=== PATIENT | male | born 1970 | race African-American/Black ===

== ENCOUNTER 2020-12-06 02:07 | Emergency (ER) | payer SELFPAY ==
--- NOTE | 2020-12-06 07:44 | EDM.PDOCBH ---
ED HPI GENERAL MEDICAL PROBLEM - General Chief Complaint: Drug or Alcohol Abuse Stated Complaint: Medical Clearance Time Seen by Provider: 12/06/20 02:10 Source of Information: Reports: Patient, Police History Limitations: Reports: No Limitations, Intoxication - History of Present Illness INITIAL COMMENTS - FREE TEXT/NARRATIVE: Patient comes emergency department today with a local Police Department for medical clearance for halfway. This patient was drinking alcohol tonight he was pulled over by the police and he is being arrested under the suspicion of driving under the influence of alcohol. Patient was brought to the emergency department for medical clearance by the police request as he has been drinking and he is going to halfway. There is no physical altercation or difficulty with the arrest. The patient did not request to come to the emergency department. The police brought him here because he is intoxicated and the halfway requires a medical clearance for any intoxicated patients. Upon arrival the patient is alert and oriented and ambulatory. He has no medical complaints. He denies any headache nausea vomiting dizziness. No chest pain no shortness of breath or difficulty breathing. No fever no chills. No abdominal pain nausea or vomiting. No hematuria dysuria or urinary frequency. No black or tarry stools he is completely asymptomatic. Denies Covid exposure denies Covid symptoms. Does admit to drinking alcohol heavily today and denies any recreational drug use. - Related Data Allergies Allergy/AdvReac Type Severity Reaction Status Date / Time No Known Allergies Allergy Verified 12/06/20 02:26 Home Meds: Home Meds . [No Known Home Meds] 12/06/20 [History] ED ROS GENERAL - Review of Systems Review Of Systems: Comprehensive ROS is negative, except as noted in HPI. ED EXAM, BEHAVIORAL HEALTH - Physical Exam Exam: See Below Text/Narrative:: He is alert appropriate no confusion. He knows where he is. He follows commands. He is ambulatory on his own very steadily. He is very cooperative and interactive. Exam Limited By: No Limitations General Appearance: Alert, WD/WN, No Apparent Distress Eye Exam: Bilateral Eye: EOMI Ears: Normal External Exam Nose: Normal Inspection Throat/Mouth: Normal Inspection, Perioral Cyanosis Head: Atraumatic Neck: Normal Inspection, Supple, Non-Tender, Full Range of Motion Respiratory/Chest: No Respiratory Distress, Lungs Clear, Normal Breath Sounds, No Accessory Muscle Use, Chest Non-Tender Cardiovascular: Normal Peripheral Pulses, Regular Rate, Rhythm GI/Abdominal: Normal Bowel Sounds, Soft, Non-Tender (Male) Exam: Deferred Rectal (Males) Exam: Deferred Back Exam: Normal Inspection, Full Range of Motion Extremities: Normal Inspection, Normal Range of Motion, No Pedal Edema, Normal Capillary Refill Neurological: Alert, Normal Mood/Affect, CN II-XII Intact, Normal Cognition, Normal Gait, Normal Reflexes, No Motor/Sensory Deficits, Oriented x 3 Psychiatric: Alert, Normal Affect, Normal Cognition, Normal Mood, Oriented Skin Exam: Warm, Dry, Intact, Normal color, No rash COURSE, BEHAVIORAL HEALTH COMP - Course Vital Signs: Last Vital Signs Temp 98.1 F 12/06/20 02:07 Pulse 92 12/06/20 02:07 Resp 15 12/06/20 02:07 BP 147/89 H 12/06/20 02:07 Pulse Ox 96 12/06/20 02:07 Medical Clearance: 12/06/20 07:48 The patient did not request to come to the emergency department. There was no injury in his detainment by the police. There was no endorsed emergency medical concerns or any medical complaints by the patient. There was no identified emergency medical complaints. He is alert appropriate ambulatory and steady on his feet. At the time of evaluation there was no reported or identified emergency medical concerns. He will be discharged with the police Departure - Departure Time of Disposition: 02:20 Disposition: DC/Tfer to Court of Law En 21 Clinical Impression: Medical clearance for incarceration Acute alcohol intoxication Qualifiers: Complication of substance-induced condition: uncomplicated Qualified Code(s): F10.920 - Alcohol use, unspecified with intoxication, uncomplicated - Discharge Information Referrals: PCP,Not In Area [Primary Care Provider] - Forms: ED Department Discharge Additional Instructions: No alcohol. With PD tonight Drink plenty of fluids especially electrolyte containing materials like gatorade and or powerade. Eat regular meals. Return to the ED if you develop any emergency medical concerns. Recheck in the clinic if any medical concerns. Sepsis Event Note (ED) - Evaluation Sepsis Screening Result: No Definite Risk - Focused Exam Vital Signs: Vital Signs Temp Pulse Resp BP Pulse Ox 12/06/20 02:07 98.1 F 92 15 147/89 H 96
== END 2020-12-06 02:18 ==
LOC: SUPCPDRO 02:07 → VM.ED 02:07
DX: F10.129 Alcohol abuse with intoxication, unspecified (principal); Z02.89 Encounter for other administrative examinations
CPT/HCPCS: 99284